=== PATIENT | male | born 1960 | race Caucasian/White ===

== ENCOUNTER 2016-12-25 17:31 | Emergency (ER) | payer OTHER ==
[~2016-12-25] VITALS: Ht 180.3 cm; Wt 108.9 kg
[2016-12-25] MEDS ORDERED: COZAAR50 MG PO (17:59)
[2016-12-25] MEDS ORDERED: NORVASC5 MG PO (18:00)
--- NOTE | 2016-12-26 09:44 | CONS ---
[facility] [address], [place] [address] Signed DATE OF CONSULTATION: 12/25/2016 TIME OF CONSULTATION: 9 p.m. CONSULTING PHYSICIAN: Candie Terry MD PROBLEM: Right lower abdominal pain. 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 Early in the morning, he began having pain in the right lower abdomen. It did not start elsewhere and was not associated with nausea, vomiting, or other problems. The patient searched the Internet about right lower abdominal pain confirming the possibility of appendicitis. He presented to the emergency room where he was evaluated by Dr. Duncan and found to have the white count of 18.2 with hematocrit of 52.1 with normal platelets as well as a chem profile that was normal and urinalysis that was normal. A call was made by Dr. Duncan regarding the advisability of CT scan as the patient did have right lower abdominal pain and possibly some tenderness. A CT scan was recommended on the possibility that this may represent another cause of problem rather than appendicitis particularly given his age of [address] scan was performed, which showed no evidence of appendicitis, nephrolithiasis, inflammatory change or other particular problem. I thought it best to evaluate him fully given the discordant findings on CT scan to those of clinical impression by the emergency room physician. His past medical history is remarkable primarily for pacemaker device in the past. He has not had abdominal surgery, he says. The patient notes that he has had some relief of his pain with passage of flatus from emergency room. It is notable that he daily has a fair amount of flatus. He did take some milk of magnesia earlier in the day and has bowel movements on a routine normal basis and does not consider himself constipated at this time. REVIEW OF SYSTEMS: He denies any associated chest pain, shortness of breath, dysuria, hematuria, Electronically Signed By: CANDIE TERRY MD 12/26/16 0944 PATIENT NAME: JIGNA DIMAS CONSULTATION DATE OF : 58 PHYSICIAN: CANDIE TERRY MD REPORT #: [id number] REPORT IS CONFIDENTIAL AND NOT TO BE RELEASED WITHOUT AUTHORIZATION [facility] [address], [place] [address] Signed hematemesis, or back pain. PHYSICAL EXAMINATION: GENERAL: A pleasant white man, who looks to be in no distress in the slightest at this time. HEENT: Mucous membranes are moist. NECK: Trachea is midline. : A full urinal is noted in a bag indicative of his urinary output, which is good. CHEST: Clear. HEART: Regular without murmur. ABDOMEN: Nondistended. With conversation and distraction, abdominal examination shows negative Rovsing sign. No tenderness at McBurney's point. EXTREMITIES: No clubbing, cyanosis, or edema. LAB STUDIES: Are as previously described. CT scan was reviewed in great detail. There was a fair amount of gas and air in the right colon. No sign of neoplasm. The terminal ileum appears normal. The appendix does not have any outstanding appearance. There is no bowel obstruction. Does have pacemaker leads noted in the cardiac portion of the CT scan. ASSESSMENT: He really shows no clinical evidence at this time of appendicitis and now his history is suggestive of it to a degree. I think it quite unlikely that he has acute abdomen in any way and certainly no evidence clinically or radiographically of appendicitis at this time. I told him that clinical and radiographic images can be in error and that if he should have recurrent symptoms, he should return for evaluation. He will be in the area as he is now based in the [place] [facility] for his [employer] occupation. He normally is in [place]. I will advise that he take a cathartic such as milk of magnesia or if necessary, magnesium citrate. If he should have worsening symptoms, he will return to the emergency room. I reviewed this all with Dr. Duncan, who agrees. Candie Terry MD Electronically Signed By: CANDIE TERRY MD 12/26/16 0944 PATIENT NAME: JIGNA DIMAS CONSULTATION DATE OF : 58 PHYSICIAN: CANDIE TERRY MD REPORT #: [id number] REPORT IS CONFIDENTIAL AND NOT TO BE RELEASED WITHOUT AUTHORIZATION [facility] [address] [place] [address] Signed SHWETA/MEREDITH /[id number] cc: Millie Duncan MD Electronically Signed By: CANDIE TERRY MD 12/26/16 0944 PATIENT NAME: JIGNA DIMAS CONSULTATION DATE OF : 58 PHYSICIAN: CANDIE TERRY MD REPORT #: [id number] REPORT IS CONFIDENTIAL AND NOT TO BE RELEASED WITHOUT AUTHORIZATION
[2016-12-26] MEDS ORDERED: ASPIRIN81 MG PO (11:56)
[2016-12-26] MEDS ORDERED: VITAMIN D31000 UNI1 PO (11:56)
== END 2016-12-25 21:32 | disposition home or self-care (01) ==
LOC: ED 17:31
DX: K59.00 Constipation, unspecified (principal); I10 Essential (primary) hypertension; Z95.0 Presence of cardiac pacemaker; Z87.891 Personal history of nicotine dependence; Z79.899 Other long term (current) drug therapy
CPT/HCPCS: 74177; 80053; 81001; 83690; 85025; 96374; 96375; 99284; J1170; J2405; J7030; Q9967

== ENCOUNTER 2016-12-26 08:44 | Observation (INO) | payer OTHER ==
[~2016-12-26] VITALS: Ht 180.3 cm; Wt 103.4 kg
[~2016-12-26 08:44] MED LIST: COZAAR50 MG PO; NORVASC5 MG PO
--- NOTE | 2016-12-26 11:51 | NUR ---
PATIENT ARRIVED TO MED SURG. PATIENT HAS DISTENDED ABD/PAIN OF 8/10. PATIENT DENIES NAUSEA AT THIS TIME. IVF INFUSING.
[2016-12-26] MEDS ORDERED: ASPIRIN81 MG PO (11:56)
[2016-12-26] MEDS ORDERED: VITAMIN D31000 UNI1 PO (11:56)
--- NOTE | 2016-12-26 13:18 | NUR ---
this RN has patient get up to ambulate in hallway.
--- NOTE | 2016-12-26 13:42 | NUR ---
NURSE IN ROOM
--- NOTE | 2016-12-26 14:44 | NUR ---
Patient states the pain medication helped him rest really well and he is feeling much better. Patient lying in bed, watching tv in no distress. Patient rates pain 4/10 to abdomen.
--- NOTE | 2016-12-26 15:10 | NUR ---
NURSE STATED THAT 1400 I/O AND VS WERE NOT NECESSARY
--- NOTE | 2016-12-26 16:05 | NUR ---
PATIENT CALLED TO GET CURTAIN SHUT. OTHERWISE DOING WELL
--- NOTE | 2016-12-26 16:42 | NUR ---
Patient sleeping in no distress. Call light in reach.
--- NOTE | 2016-12-26 16:57 | NUR ---
Patient is resting in no distress. Call light in reach. Bowel tones hypoactive and patient has tender distended abdomen. Patient is NPO, Dr Gaspar to evaluate.
--- NOTE | 2016-12-26 17:45 | NUR ---
DR. MANCERA IN TO SEE PATIENT.
--- NOTE | 2016-12-26 18:03 | NUR ---
DR. MANCERA IN TO SEE PATIENT. PATIENT MAY HAVE CLEAR LIQUIDS UNTIL 3AM. PATIENT IS CONSTIPATED AND POSSIBLE APPENDICITIS. PATIENT TO HAVE MEDICATIONS TO CLEAR THE BOWEL, ANTIBIOTICS, AND WILL BE BACK TO NPO AT 3AM SO THAT DR. MANCERA CAN REASSESS APPENDICITIS AND PATIENT WILLINGNESS FOR SURGERY. PATIENT GIVEN 0.6MG OF IV DILAUDID FOR 7/10 ABD PAIN. PATIENT IS TOLERATING CLEAR LIQUIDS WITH NO NAUSEA.
--- NOTE | 2016-12-26 19:53 | NUR ---
RECEIVED REPORT FROM DAY SHIFT RN. PATIENT IS SITTING ON THE COMMODE. PATEINT DENIES ANY NEEDS. CALL LIGHT IN REACH.
--- NOTE | 2016-12-26 21:45 | NUR ---
PATIENT ASSESMENT COMPLETED. PATIENTS EVENING MEDICATIONS GIVEN PER ORDER. PATIENT RATES PAIN AT A 3/10. PATIENT DENIES THE NEED FOR ANY PAIN MEDICATION AT THIS TIME. PATIENTS ABDOMEN IS DISTENDED, NON TENDER, AND SOFT. PATIENT IS BELCHING. PATIENT DENIES PASSING ANY GAS. PATIENT HAS BEEN UNABLE TO HAVE A BM AT THIS POINT. PATIENT ENCOURAGED TO AMBULATE. PATIENT REFUSED. EDUCATED PATIENT ON THE IMPORTANCE TO AMBULATE. PATIENT STATED "I WILL AMBULATE IN THE ROOM" PATIENT IS INDEPENDENT IN THE ROOM. PATIENT IS STEAD ON HIS FEET. PATIENT DENIES ANY FURTHER NEEDS. PATIENT HAS DRANK ALL OF THE PREP. CALL LIGHT IN REACH.
--- NOTE | 2016-12-27 00:07 | NUR ---
PATIENT IS RESTING IN BED AND ALERTED STAFF THAT HIS IV WAS BEEPING. PATIENT DENIES ANY PAIN AT THIS TIME. PATIENT DENIES ANY NEEDS. PATIENTS CALL LIGHT IN REACH.
--- NOTE | 2016-12-27 02:23 | NUR ---
PATIENTS 0200 MEDICATIONS GIVEN PER ORDER AND SECOND DOSE OF DULCOLAX. PATIENT RATES PAIN AT A 4/10. PATEINT DENIES THE NEED FOR ANY PAIN MEDICATION AT THIS TIME. PATIENT DENIES NAUSEA. BOWELS SOUNDS REMAIN RARE. ABD REMAINS DISTENDED, NON-TENDER, AND SOFT. PATIENT ENCOURAGED TO AMBULATE. PATIENT STATED "NEXT TIME I AM UP, I WILL". WILL CONTINUE TO ENCOURAGE. NO FURTHER NEEDS AT THIS TIME. CALL LIGHT IN REACH.
--- NOTE | 2016-12-27 03:07 | NUR ---
PATIENT COMPLAINED OF NAUSEA. PATIENT HAD BOUT OF EMESIS THAT RESULTED IN 1000ML. PATIENT GIVEN PRN NAUSEA MEDICATION. PATIENT IS NOW BACK IN BED RESTING. NO FURTHER NEEDS. CALL LIGHT IN REACH.
--- NOTE | 2016-12-27 04:22 | NUR ---
PATIENT COMPLAINS OF NAUSEA. PATIENT HAD A BOUT OF EMESIS THAT RESULTED IN 400ML OF EMESIS. PRN NAUSEA MEDICATION GIVEN PER ORDER. PATIENT IS BACK IN BED RESTING. CALL LIGHT IN REACH.
--- NOTE | 2016-12-27 05:08 | NUR ---
PATIENT HAD X1 SMALL LOOSE BM. PATIENT DENIES ANY PAIN OR NAUSEA. CALL LIGHT IN REACH.
--- NOTE | 2016-12-27 05:09 | NUR ---
PATIENT RESTED ON AND OFF THROUGHOUT THE SHIFT. PATIENT DENIED THE NEED FOR PAIN MEDICATION DURING THE SHIFT. PATIENT RECEIVED PRN PAIN MEDICATION X2. PATIENT HAS BEEN NPO SINCE 3AM. PATIENT HAD 1400ML IN EMESIS. PATIENT HAD X1 SMALL LOOSE BM. PATIENT IS AAOX3. PATIENT IS INDEPENDENT IN THE ROOM.
--- NOTE | 2016-12-27 05:59 | NUR ---
PATIENT CONTINUES TO HAVE NAUSEA. PATIENT HAS 75ML OF EMESIS. PATIENT GIVEN PRN NAUSEA MEDICATION PER ORDER. PATIENT DENIES ANY FURTHER NEEDS AT THIS TIME. CALL LIGHT IN REACH.
--- NOTE | 2016-12-27 07:28 | EKG ---
[facility] [address] [facility] [place], [place] [address] Signed Normal sinus rhythm Normal ECG No previous ECGs available Confirmed by MARJORIE BOYD MD ([id number]) on 12/27/2016 7:27:53 AM Electronically Signed By: MARJORIE BOYD MD 12/27/16 0728 PATIENT NAME: JIGNA DIMAS Electrocardiogram DATE OF : 58 PHYSICIAN: MARJORIE BOYD MD REPORT #: [id number] REPORT IS CONFIDENTIAL AND NOT TO BE RELEASED WITHOUT AUTHORIZATION
--- NOTE | 2016-12-27 07:40 | NUR ---
pt up to the commode at this time.
--- NOTE | 2016-12-27 08:15 | NUR ---
REPORT RECIEVED FROM JUANY YAN. PT OFF FLOOR WITH XRAY AT TIME OF REPORT. NOW BACK IN BED ASLEEP. DENIES CONCERNS. EXPLAINED PLAN FOR DAY SO FAR.
--- NOTE | 2016-12-27 09:25 | NUR ---
PT RESTING WITH EYES CLOSED. ANSWERS QUESTIONS APPROP. DENIES PAIN. BT HYPOACTIVE.
--- NOTE | 2016-12-27 10:18 | CONS ---
[facility] [address] [place], [place] [address] Signed DATE OF CONSULTATION: 12/26/2016 CHIEF COMPLAINT: Right lower quadrant abdominal pain. 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 He had his normal morning coffee and a bowel movement, but was having pain in the right lower quadrant. He had laid down in his truck for a while and eventually came to decide to come to our local emergency room for evaluation. He was seen yesterday by Dr. Millie Duncan and Dr. Keshav Zapata. Although, he had an elevated white count and some pain in the right lower quadrant. The CT scan did not show appendicitis. It showed quite a bit of stool I guess in the right colon. Unfortunately, I am not able to access the x-ray system this evening. He was sent home with a bottle of magnesium citrate. He said he took that, but it did not do any good. His pain persisted, so he came back today in the ER. Once again, his white count is elevated. He drank some polyethylene glycol earlier today and without success. 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 He has been hydrated today and given some Rocephin and Flagyl, but overall really has not passed any gas or stool. He is still having the pain lateral to McShoey's point. PAST MEDICAL HISTORY: Hypertension, bradycardia, requiring a pacemaker. PAST SURGICAL HISTORY: Right knee arthroscopy and a negative colonoscopy in 2011 with [facility]. SOCIAL HISTORY: He used to smoke about a pack of cigarettes a week, but he quit in 2011. He does not drink. He has never been . 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 He is single. He has no children. Stormy are his parents at [phone] and [phone]. He and his parents live in [place], [place]. He did mention a primary care provider, although, he gets his physicals every year, and he does not have any specific pharmacy that he prefers. FAMILY HISTORY: Paternal uncle was a heavy smoker and ended up with lung cancer. His younger paternal uncle ended up with colon cancer, had surgery and everything has come out well. REVIEW OF SYSTEMS: He had 10 systems reviewed, and I put the pertinent positives in the above findings. ALLERGIES: None. MEDICATIONS: Losartan 50 mg p.o. daily, amlodipine 5 mg p.o. daily. Electronically Signed By: JOSE MANCERA MD 12/27/16 1018 PATIENT NAME: JIGNA DIMAS CONSULTATION DATE OF : 58 PHYSICIAN: JOSE MANCERA MD REPORT #: [id number] REPORT IS CONFIDENTIAL AND NOT TO BE RELEASED WITHOUT AUTHORIZATION [facility] [address] [place] [id number] Signed PHYSICAL EXAMINATION: VITAL SIGNS: His blood pressure is 133/62, his heart rate is 74, his respiratory rate is 20, his temperature is 98.1, he is 95% on room air. He is 5 feet 11 inches, and 103 kg. GENERAL: Jigna is a 56-year-old gentleman who is lying supine in his hospital bed watching TV. He does not appear systemically ill or toxic. LUNGS: Generally clear to auscultation bilaterally. HEART: Regular rate and rhythm. ABDOMEN: Moderately to significantly distended. He is moderately firm, but he is only tender lateral to McBurney's point. He said it is worse with movement. LABORATORY DATA: His white blood cell count is 19.5, hemoglobin 17, neutrophils 82, BUN 16, creatinine 1.08. Total bilirubin slightly up at 1.8. Liver function tests negative. Albumin is 4.9. Lipase 32. His urinalysis is negative. RADIOGRAPHIC STUDIES: CT scan of abdomen and pelvis did not show appendicitis. However, seemed to be a lot of stool in the cecum. Unfortunately, I cannot access the actual films tonight. ASSESSMENT AND PLAN: Jigna is a 56-year-old gentleman who certainly has right lower quadrant abdominal pain and elevated white blood cell count. The real concern is appendicitis versus constipation. It would be unusual that he would have ischemia of the cecum, although, it is possible. I explained to Jigna my concern about the persistently elevated white blood cell count. We talked about the location of function of the appendix along with laparoscopic versus open appendectomy. He told me he really wants to avoid surgery if he can. Consequently, we will keep him here with IV fluids. We are going to allow him some liquid diet. We will give him some additional MiraLAX along with some enemas and repeat the labs in the morning along with some x-rays. Before it comes to worse, he will need surgery, but he certainly was not interested in that currently. He has expressed understanding and would like to proceed as above. Jose Mancera MD Electronically Signed By: JOSE MANCERA MD 12/27/16 1018 PATIENT NAME: JIGNA DIMAS CONSULTATION DATE OF : 58 PHYSICIAN: JOSE MANCERA MD REPORT #: [id number] REPORT IS CONFIDENTIAL AND NOT TO BE RELEASED WITHOUT AUTHORIZATION [address] [place] [address] Signed [facility] /[id number] cc: Jose Mancera MD Electronically Signed By: JOSE MANCERA MD 12/27/16 1018 PATIENT NAME: JIGNA DIMAS CONSULTATION DATE OF : 58 PHYSICIAN: JOSE MANCERA MD REPORT #: [id number] REPORT IS CONFIDENTIAL AND NOT TO BE RELEASED WITHOUT AUTHORIZATION
--- NOTE | 2016-12-27 10:55 | NUR ---
pt resting in bed at this time. told pt we would ambulate in the halls and get into the shower by 1100.
--- NOTE | 2016-12-27 11:22 | NUR ---
KCL RIDER INFUSING FOR 2 HOURS. PATIENT UP TO BATHROOM WITH STANDBY ASSIST TO TRY AND HAVE BM.
--- NOTE | 2016-12-27 14:02 | NUR ---
PT HAD LG BOUT OF EMESIS UPON GETTING UP IN BED. ADMINISTERED ZOFRAN. PT DECLINED FULL DOSE, SAID THE SMALL ONE WORKED LAST TIME. PT DENIES FURTHER CONCERNS.
--- NOTE | 2016-12-27 14:32 | NUR ---
pt is set up to take a shower. Eladia is going to SL pt so he can get into the shower. Vitals taken and charted at this time. No other requests at this time.
--- NOTE | 2016-12-27 14:50 | NUR ---
PT SALINE LOCKED FOR SHOWER. STATES HE IS FEELING BETTER AFTER ZOFRAN.
--- NOTE | 2016-12-27 15:14 | NUR ---
pt is out of the shower and states "you're right, a shower did make me feel a little better." pt needed assistance putting socks on because he stated "it hurts my abdomen to bend over for that long still." Eladia notified about pt being out of the shower and needing his IV reconnected. No other requests at this time.
--- NOTE | 2016-12-27 15:20 | NUR ---
PT DONE WITH SHOWER, REATTACHED TO IV FLUIDS AND MEDS. PT TALKATIVE AND FRIENDLY. STATES HE FEELS BETTER SINCE SHOWER. TALKED ABOUT TRAVELING.
--- NOTE | 2016-12-27 16:42 | NUR ---
PT HAD ANOTHER BOUT OF EMESIS UPON SITTING UP IN BED. NAUSEA PASSES QUICKLY AND DENIES NEEDING ANYTHING FOR IT.
--- NOTE | 2016-12-27 16:57 | NUR ---
PT AWAKE IN BED. TOOK DINNER ORDER. FRESH ICE WATER. PT HAS CALL LIGHT IN REACH.
--- NOTE | 2016-12-27 19:40 | NUR ---
RECEIVED REPORT FROM DAY SHIFT RN. PATIENT IS RESTING IN BED. PATIENT DENIES ANY PAIN OR NAUSEA AT THIS TIME. CALL LIGHT IN REACH.
--- NOTE | 2016-12-27 21:43 | NUR ---
PATIENT AMBULATED X1 LAP IN THE HALLWAY. PATIENT ASSESMENT COMPLETED AND RECORDED. PATIENTS EVENING MEDCIATIONS GIVEN PER ORDER. PATIENT RATES PAIN AT A 4/10. PATIENT DENIES THE NEED FOR PAIN MEDICATION AT THIS TIME. PATIENT DENIES ANY NAUSEA. PATIENT HAD X1 BM THAT IS STILL LOOSE BUT MORE FORMED FROM REPORTED FROM DAY SHIFT. PATIENTS BOWEL SOUNDS ARE HYPOACTIVE. PATIENTS ABD CONTINUES TO BE DISTENDED, NON TENDER, AND SOFT. PATIENT DENIES ANY FURTHER NEEDS AT THIS TIME. CALL LIGHT IN REACH.
--- NOTE | 2016-12-28 | NUR ---
PATIENT CALLED AND REQUESTED ASSISTANCE WITH GOWN. PATIENT HAD X1BM AND NEEDED A NEW GOWN. PATIENT DENIES ANY PAIN OR NAUSEA AT THIS TIME. CALL LIGHT IN REACH.
--- NOTE | 2016-12-28 02:03 | NUR ---
PATIENTS 0200 MEDICATIONS GIVEN PER. PATIENT DENIES ANY PAIN OR NAUSEA AT THIS TIME. CALL LIGHT IN REACH.
--- NOTE | 2016-12-28 03:10 | NUR ---
PT IV MACHINE SOUNDING. PT MOSTLY SLEEPY, OFFERS NO COMPLAINTS. TURNED OVER TO LEFT SIDE WHEN RN LEFT ROOM. CALL LIGHT WITHIN REACH.
--- NOTE | 2016-12-28 04:57 | NUR ---
PATIENT RESTED WELL THROUGHOUT THE SHIFT. PATIENT DENIED ANY PAIN OR NAUSEA. PATIENT HAD X3 LOOSE BMS. PATIENT IS ON CLEARS. PATIENT IS INDEPENDENT IN THE ROOM. PATIENT HAS SCDS. PATIENT IS AAOX3. PATIENTS BOWEL TONES [place]EINA HYPOACTIVE. PATIENTS ABD IS DISTENDED, NONTENDER, AND SOFT. PATIENT USES CALL LIGHT APPROPRIATELY.
--- NOTE | 2016-12-28 05:33 | NUR ---
RECEIVED VERBAL ORDER FROM DR MANCERA TO MAKE PATIENT NPO. VERIFIED ORDER USING THE READBACK METHOD. PATIENT IS NOW NPO
--- NOTE | 2016-12-28 05:40 | NUR ---
PATIENT IS NOW NPO. PATIENT EDUCATED ON CHANGE OF DIET. PATIENT VERALIZES UNDERSTANDING. PATIENT DENIES ANY PAIN OR NAUSEA. NO NEEDS AT THIS TIME. CALL LIGHT IN REACH.
--- NOTE | 2016-12-28 06:42 | NUR ---
PATIENT REQUESTED PRN PAIN MEDS WHICH WERE GIVEN TO HER. PATIENT UP TO BSC WITH 2PA. PATIENT TOLERATED WELL. PATIENT BACK IN BED. REQUESTING FOOD. CRACKERS PROVIDED TO HER. PATIENT IS REAXED AT THIS TIME.
--- NOTE | 2016-12-28 09:00 | NUR ---
PATIENT UP READY FOR DAY, DR. MANCERA ROUNDED ON PATIENT. DIET ADVANCE TOLERATED. ELECTROS REPLACED. NO COMPLAINTS OF PAIN AT THIS TIME. ABDOMEN SOFT PATIENT REPORTS MULTIPLE EPISODES OF DIARRHEA.
--- NOTE | 2016-12-28 13:00 | NUR ---
PATIENT UP AMBULATING IN HALLS, NO COMPLAINTS OF PAIN. APPEARS TO BE TOLERATING ACTIVITY WELL. ABDOMEN SOFT, PATIENT TOLERATING SOFT FOODS. NO EMESIS FOR ADBOMINAL PAIN. BOWEL TONES ACTIVE.
--- NOTE | 2016-12-28 15:00 | NUR ---
PATIENT UP AMBULATING IN HALLS. TOLERATING WELL. CONTINUES TO HAVE LOOSE STOOLS. STATES " I THINK I FEEL SOMETHING COMING" DENIES NEED FOR ENEMA AT THIS TIME. PLANS TO AMBULATE IN HALLS MORE.
--- NOTE | 2016-12-28 16:58 | NUR ---
PATIENT SAID HE USUALLY TAKES A SHOWER BEFORE HE GOES TO BED. I HAVE HIM SET UP FOR HIS SHOWER.
--- NOTE | 2016-12-28 18:53 | NUR ---
PATIENT DID NOT TOLERATE DINNER, HAD EMESIS OF 500, NOTED UNDIGESTED FOOD FROM DINNER. PATIENT CONTINUES TO HAVE LOOSE STOOLS, DISCUSSED BOWEL CARE. PATIENT REQUESTED ENEMA. ADMINISTERED, PATIENT NOW LAYING ON LEFT SIDE WITH CALL LIGHT WITHIN REACH AND BSC CLOSE BY.
--- NOTE | 2016-12-28 19:05 | NUR ---
RECEIVED REPORT FROM RN, PATIENT IS RESTING COMFORTABLY IN BED, BREATHING IS EVEN AND UNLABORED. DENIES NEEDS AT THIS TIME. CALL LIGHT WITHIN REACH.
--- NOTE | 2016-12-28 19:33 | NUR ---
ROUNDED CHARGE. PATIENT IS ON BSC. PATIENT DENIES ANY NEEDS AT THIS TIME. CALL LIGHT IN REACH.
--- NOTE | 2016-12-28 21:30 | NUR ---
PATIENT IS RESTING COMFORTABLY IN BED, BREATHING IS EVEN AND UNLABORED. DENIES NEEDS AT THIS TIME. ASSESSMENT DONE, MEDICATIONS GIVEN. PATIENT STATES "I DON'T HAVE ANY PAIN RIGHT NOW." CALL LIGHT WITHIN REACH.
--- NOTE | 2016-12-28 23:19 | NUR ---
PATIENT WANTING TO TAKE SHOWER. SALINE LOCKED AND WRAPPED IV. NO OTHER NEEDS AT THIS TIME.
--- NOTE | 2016-12-29 02:03 | NUR ---
PATIENT RESTING COMFORTABLY IN BED, BREATHING IS EVEN AND UNLABORED. DENIES NEEDS AT THIS TIME. ASSESSMENT DONE. CALL LIGHT WITHIN REACH.
--- NOTE | 2016-12-29 04:12 | NUR ---
PATIENT RESTING COMFORTABLY IN BED, BREATHING IS EVEN AND UNLABORED. DENIES NEEDS AT THIS TIME. PATIENT DENIES PAIN. CALL LIGHT WITHIN REACH.
--- NOTE | 2016-12-29 05:18 | NUR ---
PATIENT'S NIGHT WAS UNEVENTFUL. HE HAS BEEN RESTING COMFORTABLY IN BED THROUGHOUT NIGHT. VSS, NO COMPLAINTS OF PAIN. PATIENT IS INDEPENDENT IN HIS ROOM, HAS IV FLUIDS RUNNING. BOWEL TONES ARE ACTIVE AND THE PATIENT IS PASSING FLATUS WITH MILD ABDOMINAL DISTENTION. NO ACUTE CHANGES FROM BEGINNING OF SHIFT ASSESSMENT.
--- NOTE | 2016-12-29 08:01 | NUR ---
PATIENT REPORTS HE DID NOT HAVE A SOLID BM, JUST DIARRHEA THROUGHOUT THE NIGHT. REQUESTED SOME PRUNE JUICE. ABDOMEN SOFT, AND PAIN IMPROVED. RATES PAIN 5/10 ON PAIN SCALE. PATIENT WANTING TO ATTEMPT TO EAT [place] TOAST THIS MORNING FOR BREAKFAST.
[2016-12-29] MEDS ORDERED: BENEFIBER1 EAC2 PO (10:19)
[2016-12-29] MEDS ORDERED: MIRALAX17 GM PO (10:19)
--- NOTE | 2016-12-29 10:51 | NUR ---
DR. MANCERA ROUNDED ON PATIENT, VERBALIZED TO ADMINISTER DOSE OF ROCEPHIN IV BEFORE DISCHARGE. VS STABLE. PATIENT STATES " I AM FEELING WAY BETTER TODAY, AND BREAKFAST IS STAYING DOWN WELL, NO NAUSEA. PLAN TO DISCHARGE TODAY.
--- NOTE | 2016-12-29 11:38 | NUR ---
PATIENT TOOK SHOWER LAST NIGHT.
--- NOTE | 2016-12-31 08:26 | DS ---
[facility] [address], [place] [address] Signed ADMISSION DATE: 12/26/2016 DISCHARGE DATE: 12/29/2016 FINAL DIAGNOSES: 1. Constipation. 2. Possible early appendicitis/right lower quadrant abdominal pain. PROCEDURES: CT scan of abdomen and pelvis. 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 He was in our area for his employment. He developed 2 days of right lower quadrant abdominal pain. 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 He came in the emergency room the 1st time, was seen by our ER physician as well as our general surgeon, Dr. Zapata. At that time, his white count was up a little bit, but the CT scan showed what looked like constipation. He was allowed to go home with some magnesium citrate. That did not work out well, so he came back to the emergency room the following day. I was asked to admit him as a general surgeon on-call. HOSPITAL COURSE: Jigna again had a white count at 19.5 with neutrophils 82. Other laboratory work was unremarkable. His pain was lateral to McBurney's point. I had reviewed the CT scan myself and I could see the stool, but I did not seem overly impressed in that way. Nevertheless, we did start antibiotics, Rocephin and Flagyl along with IV fluids. We also gave him MiraLax and some suppositories and enemas and Dulcolax by mouth. That resulted in vomiting rather than a bowel movement. X-rays following day showed some air fluid levels in the small bowel and colon. There was no free air. We decided to follow a less aggressive course. We just kept him on his antibiotics and his IV fluids. We found that each day his white count decreased and the pain in the right lower quadrant decreased. He finally started to have some flatus and multiple bowel movements. Interestingly, last night and this morning, he has had a small rabbit pellet-like stool, but also liquid stool as well. However, he feels much better overall. He tried to push his diet a little bit yesterday and end up vomiting, but he said he thinks that was all from the food. He said overall he slept and feels much better. We did after replace his potassium and phosphorus while here in the hospital. On exam, this morning, he has minimal if any pain lateral to McShoey's point. Jigna and I had a long discussion. He is from [place], [place]. His primary care provider is in [place]. He only sees his primary once a year for his blood pressure pills and his physical exam. At this point, he said he feels comfortable being discharged from the hospital. He will be in our area a few days, and then he will be headed back to [place]. Of course, I am available the next few days, as I am on-call and he can always call my office if he needs anything as well. Electronically Signed By: JOSE MANCERA MD 12/31/16 0826 PATIENT NAME: JIGNA DIMAS DISCHARGE SUMMARY DATE OF : 58 PHYSICIAN: JOSE MANCERA MD REPORT #: [id number] REPORT IS CONFIDENTIAL AND NOT TO BE RELEASED WITHOUT AUTHORIZATION [facility] [address] [place] [id number] Signed DISCHARGE PLANS AND MEDICATIONS: Jigna will be discharged home without any new prescriptions. However, when I asked that he take some MiraLax 17 g p.o. b.i.d. in 8 to 12 ounces of liquid at least for the next week or so. He can purchase that [id number] any of our local stores. He can also purchase Benefiber 1 tablespoon p.o. b.i.d. in 8 to 12 ounces of liquid. Again, he can do that over the counter. He can adjust his Benefiber dosing until he has the stool in the consistency once. If he takes too much Benefiber, he will develop gas and distention and we will have to cut the dose back. He can also resume his blood pressure medications. He can follow a regular diet. Of course, if he gets into trouble with his abdomen, he can always come back to the emergency room or call my office here locally, in due time, he needs to follow up with his primary care provider. He explained to me that a paternal uncle did have colon cancer. Jigna had his last colonoscopy with [facility] around 2011. To his knowledge, it was negative. At this point, he is due for another colonoscopy given his current symptoms and his family history. He has expressed understanding and agrees with above plan. MD ROBERTA Jordan/MEREDITH /[id number] cc: Jose Mancera MD Electronically Signed By: JOSE MANCERA MD 12/31/16 0826 PATIENT NAME: JIGNA DIMAS DISCHARGE SUMMARY DATE OF : 58 PHYSICIAN: JOSE MANCERA MD REPORT #: [id number] REPORT IS CONFIDENTIAL AND NOT TO BE RELEASED WITHOUT AUTHORIZATION
== END 2016-12-29 11:45 | disposition home or self-care (01) ==
LOC: ED 08:44 → MS 08:45
PROVIDERS: ADMIT Colon & Rectal Surgery
DX: K59.00 Constipation, unspecified (principal); R10.31 Right lower quadrant pain; E87.6 Hypokalemia; E83.39 Other disorders of phosphorus metabolism; I10 Essential (primary) hypertension; D72.829 Elevated white blood cell count, unspecified; Z79.899 Other long term (current) drug therapy; Z87.891 Personal history of nicotine dependence; Z95.0 Presence of cardiac pacemaker
CPT/HCPCS: 36415; 74020; 80048; 83735; 84100; 85025; 93005; 93010; 96361; 96365; 96366; 96367; 96368; 96372; 96375; 96376; 99285; G0378; J0696; J1170; J1644; J2405; J2550; J3480; J7030; J7042; J7060; J7120